=== PATIENT | male | born 1990 | race Hispanic/Latino ===

== ENCOUNTER 2017-01-03 21:05 | Emergency (ER) | payer OTHER ==
[2017-01-03 21:40] VITALS: BP 146/85; PULSE 72; RESP 18; TEMP 98; O2SAT 100
--- NOTE | 2017-01-03 23:38 | US ---
EXAM: US Duplex Left Lower Extremity Veins CLINICAL HISTORY: 27 years old, male; Pain; Leg, lower; Left; Additional info: Calf pain TECHNIQUE: Real-time ultrasound scan of the veins of the left lower extremity with color Doppler flow, spectral waveform analysis and compression. COMPARISON: No relevant prior studies available. FINDINGS: Deep veins: Normal color and spectral Doppler flow. Normal compressibility. No deep vein thrombosis from common femoral to popliteal vein. Superficial veins: No thrombosis. Soft tissues: No popliteal cyst. IMPRESSION: 1. No evidence of DVT within LEFT lower extremity. 2. Incidental/non-acute findings are described above.
--- NOTE | 2017-01-03 23:45 | ED PDOC ---
Lower Extremity Pain/Injury Time Seen by Provider: 01/03/17 21:58 Chief Complaint (Nursing): Lower Extremity Problem/Injury Chief Complaint (Provider): Left calf pain History/Exam Limitations: no limitations Onset/Duration Of Symptoms: Days Current Symptoms Are (Timing): Still Present Additional Complaint(s): Pt states he had a small cyst/mass on the left upper inner thigh. PT states he has been bothering him. Pt states the last 2 days he has been having pain from the mass to the posterior calf. PT states his cousin had a DVT once and he is concerned. Cousin when to hematology and was told he did not have a clotting disorder. Denies SOB. Denies chest pain. Past Medical History Reviewed: Historical Data, Nursing Documentation, Vital Signs Vital Signs: Last Vital Signs Temp 98 F 01/03/17 21:37 Pulse 72 01/03/17 21:37 Resp 18 01/03/17 21:37 BP 146/85 01/03/17 21:37 Pulse Ox 100 01/03/17 21:37 - Medical History PMH: No Chronic Diseases - Surgical History Surgical History: No Surg Hx - Family History Family History: States: No Known Family Hx - Living Arrangements Living Arrangements: With Family - Social History Current smoker - smoking cessation education provided: No Alcohol: Occasional Drugs: Denies - Allergies Allergies/Adverse Reactions: Allergies Allergy/AdvReac Type Severity Reaction Status Date / Time No Known Allergies Allergy Verified 01/03/17 22:29 Review of Systems ROS Statement: Except As Marked, All Systems Reviewed And Found Negative Musculoskeletal: Positive for: Leg Pain Physical Exam - Reviewed Nursing Documentation Reviewed: Yes Vital Signs Reviewed: Yes - Physical Exam Appears: Positive for: Well, Non-toxic, No Acute Distress Head Exam: Positive for: ATRAUMATIC, NORMAL INSPECTION, NORMOCEPHALIC Skin: Positive for: Normal Color, Warm, DRY Eye Exam: Positive for: Normal appearance ENT: Positive for: Normal ENT Inspection Neck: Positive for: Normal, Painless ROM Respiratory: Negative for: Accessory Muscle Use, Respiratory Distress Back: Positive for: Normal Inspection Extremity: Positive for: Normal ROM, Calf Tenderness Neurologic/Psych: Positive for: Alert, Oriented - ECG O2 Sat by Pulse Oximetry: 100 Medical Decision Making Medical Decision Making: US (-) DVt Disposition - Clinical Impression Clinical Impression: Calf pain - Disposition Disposition: Routine/Home Disposition Time: 23:31 Condition: STABLE
== END 2017-01-03 23:50 | disposition home or self-care (01) ==
LOC: H.ER 21:05
DX: M79.605 Pain in left leg (principal)